=== PATIENT | male | born 2000 | race Caucasian/White ===

== ENCOUNTER 2021-02-15 09:25 | Emergency (ER) | payer OTHER ==
[~2021-02-15] VITALS: Ht 177.8 cm; Wt 70.5 kg
[2021-02-15] MEDS ORDERED: IBUP200C25 PO (12:03)
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
[2021-02-15 12:29] VITALS: BP 131/68
== END 2021-02-15 12:31 | disposition home or self-care (01) ==
LOC: M ED 09:25
DX: S16.1XXA Strain of muscle, fascia and tendon at neck level, initial encounter (principal); V43.52XA Car driver injured in collision with other type car in traffic accident, initial encounter; Y92.410 Unspecified street and highway as the place of occurrence of the external cause

== ENCOUNTER 2021-03-02 19:29 | Emergency (ER) | payer OTHER ==
[~2021-03-02] VITALS: Ht 175.3 cm; Wt 70.2 kg
[~2021-03-02 19:29] MED LIST: IBUP200C25 PO
[2021-03-02 22:32] LABS: RSV AMPLIFICATION NEGATIVE (NEGATIVE)
[2021-03-03] MEDS ORDERED: IBUPROFEN 800 MG TAB PO ONE
[2021-03-03] MEDS ORDERED: ACETAMINOPHEN 325 MG TAB PO ONE
[2021-03-03] MEDS ORDERED: IBUP-1022 PO (00:04)
[2021-03-03] MEDS ORDERED: TYLE650T38 PO (00:04)
[2021-03-03 00:10] VITALS: BP 118/56
[2021-03-03] MEDS ORDERED: ONDANSETRON 4 MG ORAL DISINTEGRATING TAB PO ONE (00:10)
== END 2021-03-03 00:13 | disposition home or self-care (01) ==
LOC: M ED 19:29
DX: R50.83 Postvaccination fever (principal); R51.9 Headache, unspecified; T50.B95A Adverse effect of other viral vaccines, initial encounter
CPT/HCPCS: 87631; 99283; Q0162